=== PATIENT | female | born 1945 | race Caucasian/White ===

== ENCOUNTER → 2017-01-05 | Outpatient (CLI) | payer MEDICARE ==
--- NOTE | 2017-01-05 14:17 | REPMRS ---
Patient History The patient states she has not had a clinical breast exam in over a year. Patient has history of ovarian cancer at age 24. No known family history of cancer. Benign core biopsy. Digital Woman Screen Mammo: January 05, 2017 - Exam #: [id number] Bilateral CC and MLO view(s) were taken. Technologist: Mia Marrero, Technologist Prior study comparison: July 12, 2015, digital woman screen mammo performed at [place] [facility]. July 10, 2014, digital woman screen mammo performed at [place] [facility]. April 01, 2013, digital woman screen mammo performed at [place] [facility]. FINDINGS: The breast tissue is heterogeneously dense. This may lower the sensitivity of mammography. There is a moderate amount of heterogeneously dense fibroglandular tissue which is fairly symmetric. There is no interval development of dominant mass, architectural distortion, or clustered microcalcification typical of malignancy. There has been no change in the appearance of the mammogram from the prior studies. ASSESSMENT: BI-RADS/ACR category 1 mammogram. Negative. Recommendation Routine screening mammogram of both breasts in 1 year (for women over age 40). This mammogram was interpreted with the aid of an FDA-approved computer-aided dectection system. Electronically Signed By: Julius Huff MD 01/05/17 [id number]
== END ==
LOC: M WHC 12:56
PROVIDERS: ATTEND Internal Medicine
DX: Z12.31 Encounter for screening mammogram for malignant neoplasm of breast (principal); M81.0 Age-related osteoporosis without current pathological fracture; Z92.89 Personal history of other medical treatment; Z85.43 Personal history of malignant neoplasm of ovary

== ENCOUNTER → 2018-01-07 | Outpatient (CLI) | payer MEDICARE | LOC: M WHC 13:27 | DX: Z12.31 Encounter for screening mammogram for malignant neoplasm of breast (principal); Z92.89 Personal history of other medical treatment | CPT/HCPCS: 77067 ==

== ENCOUNTER → 2019-07-08 | Outpatient (CLI) | payer MEDICARE ==
--- NOTE | 2019-07-08 14:36 | REPMRS ---
Patient History The patient states she has not had a clinical breast exam in over a year. No known family history of cancer. Benign core biopsy. 3D TOMOSYNTHESIS WAS PERFORMED. [facility] lifetime risk for breast cancer is 2.9%. Digital Woman Screen Mammo: July 08, 2019 - Exam #: [id number] Bilateral CC and MLO view(s) were taken. Technologist: Samantha Peres, Technologist Prior study comparison: January 07, 2018, bilateral digital woman screen mammo performed at [facility]. January 05, 2017, digital woman screen mammo performed at [facility]. FINDINGS: The breast tissue is heterogeneously dense. This may lower the sensitivity of mammography. There has been no change in the appearance of the mammogram from the prior studies. There is a moderate amount of residual fibroglandular tissue which is fairly symmetric. There is no interval development of dominant mass, areas of architectural distortion, or clustered microcalcification typical of malignancy. Assessment: BI-RADS/ACR category 1 mammogram. Negative Mammogram. Recommendation Routine screening mammogram in 1 year (for women over age 40). This mammogram was interpreted with the aid of an FDA-approved computer-aided dectection system. Electronically Signed By: Rajesh Hickman MD 07/08/19 1201
== END ==
LOC: M WHC 13:13
PROVIDERS: ATTEND Internal Medicine
DX: Z12.31 Encounter for screening mammogram for malignant neoplasm of breast (principal); Z13.820 Encounter for screening for osteoporosis; Z78.0 Asymptomatic menopausal state

== ENCOUNTER → 2020-04-27 | Outpatient (REF) | payer MEDICARE ==
[2020-04-27 19:27] LABS: PERCENT SATURATION 28.4 % (13.2-45.0)
== END ==
LOC: M LAB REF 16:26
PROVIDERS: ATTEND Internal Medicine
DX: D51.9 Vitamin B12 deficiency anemia, unspecified (principal)

== ENCOUNTER → 2020-06-10 | Outpatient (REF) | payer MEDICARE ==
[2020-06-10 13:57] LABS: TOTAL PROTEIN 7.5 GM/DL (6.4-8.2)
[2020-06-15 11:05] LABS: ALBUMIN % 48.2 % (55.8-66.1); ALPHA-1-GLOBULIN % 6.2 % (2.9-4.9); ALPHA-2-GLOBULINS % 13.8 % (7.1-11.8); BETA-1-GLOBULINS % 6.6 % (4.7-7.2); BETA-2-GLOBULINS % 6.6 % (3.2-6.5)
[2020-06-15 11:06] LABS: ALBUMIN 3.62 GM/DL (3.29-5.55); ALPHA-1-GLOBULINS 0.47 GM/DL (0.17-0.41); ALPHA-2-GLOBULINS 1.04 GM/DL (0.42-0.99); GAMMA GLOBULIN % 18.6 % (11.1-18.8)
== END ==
LOC: M LAB REF 12:57
PROVIDERS: ATTEND Internal Medicine
DX: I13.10 Hypertensive heart and chronic kidney disease without heart failure, with stage 1 through stage 4 chronic kidney disease, or unspecified chronic kidney disease (principal); D64.9 Anemia, unspecified

== ENCOUNTER 2020-07-03 17:15 | Observation (INO) | payer MEDICARE ==
[~2020-07-03] VITALS: Ht 152.4 cm; Wt 31.7 kg
[2020-07-03] MEDS ORDERED: LEVO25TA5 PO (17:42)
[2020-07-03] MEDS ORDERED: MIRT1TAB15 PO (17:42)
[2020-07-03] MEDS ORDERED: GRAL600T PO (17:42)
[2020-07-03] MEDS ORDERED: ATEN25TA PO (17:42)
[2020-07-03] MEDS ORDERED: OMEP-218 PO (17:42)
[2020-07-03] MEDS ORDERED: MULT1TAB7 PO (17:42)
[2020-07-03] MEDS ORDERED: OXYC-517 PO (17:42)
[2020-07-03] MEDS ORDERED: ECOT81TA5 PO (17:42)
[2020-07-03] MEDS ORDERED: NITR4TASL SL (17:42)
[2020-07-03] MEDS ORDERED: TRAM50TA2 PO (17:42)
[2020-07-03] MEDS ORDERED: BUPR150T5 PO (17:42)
[2020-07-03] MEDS ORDERED: RANI15TA PO (17:42)
[2020-07-03] MEDS ORDERED: CEFD1CAP8 PO (17:42)
[2020-07-03] MEDS ORDERED: CALC600T60 PO (17:42)
[2020-07-03] MEDS ORDERED: ATOR1TAB21 PO (17:42)
[2020-07-03] MEDS ORDERED: ONDANSETRON 4MG/2ML VIAL IV ONE (18:30)
[2020-07-03 18:39] LABS: BASO # 0.1 10^3/uL (0.0-0.2); BASO % 0.7 % (0.0-1.0); EOS # 0.2 10^3/uL (0.0-0.5); EOS % 1.8 % (0.0-3.0); HEMATOCRIT 32.5 % (36.0-47.0); HEMOGLOBIN 9.5 g/dl (12.0-15.5); LYMPH # 1.5 10^3/uL (1.5-5.0); LYMPH % 13.5 % (24.0-44.0); MEAN CORPUSCULAR HEMOGLOBIN 29.1 pg (27.0-33.0); MEAN CORPUSCULAR HGB CONC 29.2 g/dl (32.0-36.5); MEAN CORPUSCULAR VOLUME 99.7 fl (80.0-96.0); MONO # 0.7 10^3/uL (0.0-0.8); MONO % 6.6 % (0.0-5.0); NEUTROPHILS # 8.5 10^3/uL (1.5-8.5); PLATELET COUNT, AUTOMATED 600 10^3/uL (150-450); RED BLOOD COUNT 3.26 10^6/uL (4.00-5.40); WHITE BLOOD COUNT 11.1 10^3/uL (4.0-10.0)
[2020-07-03 18:49] LABS: ALT/SGPT 68 U/L (12-78); BLOOD UREA NITROGEN 23 MG/DL (7-18); CALCIUM LEVEL 9.1 MG/DL (8.8-10.2); CARBON DIOXIDE LEVEL 26 MEQ/L (21-32); CHLORIDE LEVEL 110 MEQ/L (98-107); CK-MB VALUE MASS < 1.0 NG/ML (<3.6); CPK CREATINE PHOSPHOKINASE 27 U/L (26-192); CREATININE FOR GFR 1.31 MG/DL (0.55-1.30); GLOMERULAR FILTRATION RATE 42.1 (>39); GLUCOSE, FASTING 95 MG/DL (70-100); POTASSIUM SERUM 3.9 MEQ/L (3.5-5.1); SODIUM LEVEL 143 MEQ/L (136-145)
[2020-07-03 18:50] LABS: ALBUMIN 3.1 GM/DL (3.2-5.2); BILIRUBIN,DIRECT 0.2 MG/DL (0.0-0.2); BILIRUBIN,TOTAL 0.4 MG/DL (0.2-1.0); LIPASE 186 U/L (73-393); TOTAL PROTEIN 7.7 GM/DL (6.4-8.2); TROPONIN I < 0.02 NG/ML (< 0.10)
[2020-07-03] MEDS ORDERED: NS 1,000 ML IV SCH (19:00)
[2020-07-03] MEDS ORDERED: LR 1,000 ML IV SCH (19:00)
[2020-07-03] MEDS ORDERED: ISOVUE-370 76% 100ML VIAL As Ordered ONE (19:26)
--- NOTE | 2020-07-03 19:30 | REPVR ---
PROCEDURE INFORMATION: Exam: XR Chest, 2 Views Exam date and time: 07/03/2020 6:25 PM Age: 75 years old Clinical indication: Pain; Other: Abd; Additional info: Abdominal pain TECHNIQUE: Imaging protocol: XR of the chest Views: 2 views. COMPARISON: No relevant prior studies available. FINDINGS: Lungs: Lungs are hyperinflated and clear. Pleural space: No pleural effusions. Heart/Mediastinum: Cardiomediastinal silhouette is enlarged and there is atherosclerotic calcification. Bones/joints: There is evidence of prior vertebroplasties in the mid and lower thoracic spine and upper lumbar spine. Cervical spine fusion hardware and surgical clips in left neck in region of the left carotid artery. IMPRESSION: 1. No acute cardiopulmonary findings. 2. Osteopenic endplate compression fractures, at level below the lower thoracic vertebroplasty, of indeterminate age. Electronically signed by: Hannah Oneil On 07/03/2020 19:30:48 PM
--- NOTE | 2020-07-03 20:24 | REPVR ---
PROCEDURE INFORMATION: Exam: CT Abdomen And Pelvis With Contrast Exam date and time: 07/03/2020 7:34 PM Age: 75 years old Clinical indication: Abdominal pain; Tenderness; Left upper quadrant (luq); Additional info: Luq abd tenderness. Nausea and vomiting TECHNIQUE: Imaging protocol: Computed tomography of the abdomen and pelvis with intravenous contrast. Radiation optimization: All CT scans at this facility use at least one of these dose optimization techniques: automated exposure control; mA and/or kV adjustment per patient size (includes targeted exams where dose is matched to clinical indication); or iterative reconstruction. Contrast material: ISOVUE 370; Contrast volume: 70 ml; Contrast route: INTRAVENOUS (IV); COMPARISON: No relevant prior studies available. FINDINGS: Lungs: Emphysema. No focal consolidation at the lung bases or pleural effusions. Liver: There are no focal liver lesions. There appears to be hepatomegaly with right lobe measuring 19 cm in length. Gallbladder and bile ducts: Calculi are seen in the gallbladder. Pancreas: The pancreas is not well assessed but is grossly normal appearance. Spleen: The spleen is normal. Adrenal glands: The adrenal glands are unremarkable. Kidneys and ureters: The right kidney is unremarkable. There is probable mild left renal atrophy. Stomach and bowel: The descending colon is decompressed and therefore not well assessed. Appendix: No evidence of appendicitis. Intraperitoneal space: Unremarkable. No free air. No significant fluid collection. Vasculature: The infrarenal abdominal aorta measures 2 cm AP. There is extensive atherosclerosis. Lymph nodes: Unremarkable. No enlarged lymph nodes. Urinary bladder: Unremarkable as visualized. Reproductive: Unremarkable as visualized. Bones/joints: There is grade 1 anterior spondylolisthesis of L3 on L4. There are retropulsed bone fragments from the T10 and L1 vertebral body endplate compression fractures with vertebroplasties of both of these levels. There is mild cupping of additional vertebral body endplates without definite acute compression fractures in the lower thoracic or lumbar spine. Soft tissues: Unremarkable. IMPRESSION: 1. No definite acute abnormality in the left upper quadrant to explain the patient's pain in this location. 2. Cholelithiasis. Electronically signed by: Hannah Oneil On 07/03/2020 20:24:58 PM
[2020-07-03] MEDS ORDERED: MIRTAZAPINE 15 MG TAB PO SCH (21:00)
[2020-07-03] MEDS ORDERED: ACETAMINOPHEN TAB 650MG DOSE (2X325MG) PO PRN (22:15)
[2020-07-03 22:41] LABS: FERRITIN 114 NG/ML (8-252); FREE T4 1.15 NG/DL (0.76-1.46); IRON (FE) 32 UG/DL (50-170); PERCENT SATURATION 10.2 % (13.2-45.0); TOTAL IRON BINDING CAPACITY 314 UG/DL (250-450)
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
[2020-07-03] MEDS: NS 1,000 ML IV SCH (23:47)
--- NOTE | 2020-07-03 23:54 | REPVR ---
PROCEDURE INFORMATION: Exam: US Retroperitoneal; Complete; Kidneys and Bladder Exam date and time: 07/03/2020 11:33 PM Age: 75 years old Clinical indication: Abnormal findings; Abnormal lab test; Abnormal kidney function lab tests; Additional info: [place] TECHNIQUE: Imaging protocol: Real-time ultrasound of the retroperitoneum with image documentation. Complete exam focused on the kidneys and bladder. COMPARISON: CT ABD/PEL W/IV CONTRAST ONLY 07/03/2020 7:26 PM FINDINGS: Right kidney: Right kidney measures 8.8 cm in length. No hydronephrosis. Moderate renal cortical atrophy. No masses. Normal echogenicity. Left kidney: Left kidney measures 7.9 cm in length. Cyst in the midpole of the left kidney measures 2.0 x 1.6 x 1.9 cm. Moderate renal cortical atrophy. No left hydronephrosis. Normal echogenicity. Urinary bladder: Bladder is not visualized in the pelvis. IMPRESSION: 1. No hydronephrosis. 2. Moderate renal cortical atrophy. 3. Cyst in the midpole of the left kidney. No follow-up is necessary. COMMENTS: Consistent with the [employer]'s Incidental Findings Committee white paper (J Am Sadie Radiol 2018): Any incidental renal lesion less than 1 cm or classified as too small to characterize, or any incidental cystic renal lesion characterized as simple-appearing, is likely benign. No follow-up imaging is recommended for these lesions per consensus recommendations based on imaging criteria. Electronically signed by: Beryl Covington On 07/03/2020 23:54:53 PM
[2020-07-04] MEDS: DOCUSATE SODIUM 100MG CAPSULE PO SCH ×2 (00:16→09:26)
[2020-07-04 00:28] VITALS: BP 126/79
[2020-07-04 06:00] VITALS: BP 130/60
--- NOTE | 2020-07-04 06:42 | ECGEPIP ---
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
[2020-07-04 07:13] LABS: HEMATOCRIT 27.1 % (36.0-47.0); HEMOGLOBIN 8.2 g/dl (12.0-15.5); MEAN CORPUSCULAR HEMOGLOBIN 29.9 pg (27.0-33.0); MEAN CORPUSCULAR HGB CONC 30.3 g/dl (32.0-36.5); MEAN CORPUSCULAR VOLUME 98.9 fl (80.0-96.0); RED BLOOD COUNT 2.74 10^6/uL (4.00-5.40); WHITE BLOOD COUNT 7.4 10^3/uL (4.0-10.0)
[2020-07-04 07:18] LABS: PLATELET COUNT, AUTOMATED 450 10^3/uL (150-450)
[2020-07-04 07:34] LABS: CALCIUM LEVEL 8.4 MG/DL (8.8-10.2); CREATININE FOR GFR 1.11 MG/DL (0.55-1.30); MAGNESIUM LEVEL 1.8 MG/DL (1.8-2.4); POTASSIUM SERUM 3.7 MEQ/L (3.5-5.1)
[2020-07-04] MEDS ORDERED: ENOXAPARIN 40MG/0.4ML SYRINGE (J1650 PER 10MG) SC SCH (09:00)
[2020-07-04] MEDS ORDERED: ATORVASTATIN 20 MG TAB PO SCH (09:00)
[2020-07-04] MEDS ORDERED: OMEPRAZOLE 20 MG CAP PO SCH (09:00)
[2020-07-04] MEDS ORDERED: LEVOTHYROXINE 25MCG TABLET (0.025MG) PO SCH (09:00)
[2020-07-04] MEDS ORDERED: ASPIRIN 81 MG ENTERIC TAB PO SCH (09:00)
[2020-07-04] MEDS ORDERED: atenoloL 25 MG TAB PO SCH (09:00)
[2020-07-04 09:27] VITALS: BP 130/60
[2020-07-04] MEDS: NS 1,000 ML IV SCH (09:27)
[2020-07-04] MEDS ORDERED: DOK1CAP7 PO (11:59)
--- NOTE | 2020-07-04 11:59 | IPNPDOC ---
Text Note Date of Service The patient was seen on 07/04/20. NOTE Subjective: Patient was seen and examined this morning at bedside. She was sitting up in her chair eating breakfast. She had just finished working with the physical therapist. She says she did very well with therapist and walked using a rolling walker all around the hallway and is feeling better. She says she's just been unmotivated to move around in the house and ate but feels more motivated to do so now. Ms. Osborne about her weight she tells me she's always been very tiny with a low BMI as long as she can remember ells me she weighed only 80 pounds when she was a teenager and her weight has never bothered her. Has not been any sudden increase or decrease in her weight over the past. Of time. Objective: Constitutional: Awake and alert, in no apparent distress very thin and frail. ENT: Sclera are clear. Mucosa is moist. Respiratory: Lungs CTA bilaterally. No respiratory distress. No use of accessory muscles. Cardiovascular: RRR S1 and S2 are normal, no murmur Gastrointestinal: Abdomen is soft, non distended, non tender, BS present. Musculoskeletal: No edema. Neurologic: No focal neurological deficit. Mental Status: A&O x3, normal affect Skin: Warm, dry Assessment/plan: 75-year-old female history of coronary artery disease who comes to the hospital for weakness and loss of appetite was found to have acute kidney injury due to dehydration. Patient was given IV fluids and her ALIS resolved. She was seen by PT who walked with her using a rolling walker and she felt she did great. His therapy cleared her for discharge safely to home with suggestion of home PT. I spoke to the patient encourage her to walk frequently at home as educated and she agreed. She saw me she's doing much better now that she was a little dehydrated but not appetite is improved and she feels her to go home. She will be trying to drink more and sure clear. Patient was cleared to be discharged from observation on 07/04/2020. #ALIS: Resolved with IV fluids. Was secondary to dehydration. Encouraged oral hydration at home. #Weakness: Feeling better after IV fluids. Worked with PT and was cleared to go home with home PT. #Hypoalbuminemia: Due to decreased appetite and malnutrition. Follow-up with PCP for referral to dietitian. We'll be drinking more and sure clear. Appetite improved. #Nausea/vomiting: No longer nauseous or vomiting. Feeling better after IV flu ids. #Hypothyroidism: Free T4 normal continue home dose levothyroxine #Macrocytic anemia: Has history anemia. Follow-up with PCP. Follow-up B12 and folate, iron studies with PCP #CAD: Follows up with iron bender Dr. Chairez. [place] more than 10 years ago. Continue aspirin and statin. # DVT prophylaxis: Heparin Disposition: wants to go home not interested in placement. Feels well enough to go home today. Cleared PT today. A Saritha Hospitalist VSGloria, I+O VS, Gloria, I+O Laboratory Tests 07/03/20 17:52 07/04/20 06:41 Vital Signs Date Time Temp Pulse Resp B/P (MAP) Pulse Ox O2 Delivery O2 Flow Rate FiO2 07/04/20 09:27 78 130/60 07/04/20 06:00 98.6 18 95 Room Air I&O- Last 24 Hours up to 6 AM 07/04/20 06:00 Intake Total 570 ml Output Total 0 ml Balance 570 ml VIN VALDEZ MD Jul 04, 2020 11:58
[2020-07-05 09:58] LABS: VITAMIN B12 LEVEL 1452 PG/ML (247-911)
== END 2020-07-04 14:25 | disposition home or self-care (01) ==
LOC: M ED 17:15 → INTOOBSV 21:55 → M ED INP 21:55 → M MS5PR 23:59
PROVIDERS: ADMIT Internal Medicine; ATTEND Internal Medicine
DX: R62.7 Adult failure to thrive (principal); N17.9 Acute kidney failure, unspecified; E86.0 Dehydration; R53.1 Weakness; I25.10 Atherosclerotic heart disease of native coronary artery without angina pectoris; D50.9 Iron deficiency anemia, unspecified; I10 Essential (primary) hypertension; E78.00 Pure hypercholesterolemia, unspecified; E88.09 Other disorders of plasma-protein metabolism, not elsewhere classified; E03.9 Hypothyroidism, unspecified; Z87.891 Personal history of nicotine dependence; Z79.82 Long term (current) use of aspirin; Z79.899 Other long term (current) drug therapy
CPT/HCPCS: 36415; 71046; 74177; 76775; 80048; 80076; 81001; 82550; 82553; 82607; 82728; 83036; 83550; 83605; 83690; 83735; 84439; 84443; 84484; 85025; 85027; 87040; 87086; 93005; 94760; 96361; 96374; 97116; 97161; 99285; G0378; J2405; Q9967; U0002